=== PATIENT | female | born 1980 | race Caucasian/White ===

== ENCOUNTER → 2018-08-29 | Outpatient (REF) | payer OTHER | LOC: M LAB REF 19:13 | DX: N39.0 Urinary tract infection, site not specified (principal) ==

== ENCOUNTER → 2020-02-06 | Outpatient (REF) | payer OTHER, MEDICAID | LOC: M SFHCWAGY 18:46 | PROVIDERS: ATTEND Nurse Practitioner Women's Health | DX: Z12.4 Encounter for screening for malignant neoplasm of cervix (principal) ==

== ENCOUNTER → 2020-02-13 | Outpatient (CLI) | payer OTHER, MEDICAID ==
[2020-02-13 11:07] LABS: BLOOD UREA NITROGEN 15 MG/DL (7-18); CALCIUM LEVEL 8.8 MG/DL (8.5-10.1); CARBON DIOXIDE LEVEL 26 MEQ/L (21-32); CHLORIDE LEVEL 106 MEQ/L (98-107); CHOLESTEROL LEVEL 187 MG/DL (<200); CHOLESTEROL RISK RATIO 3.816 (<5); CREATININE FOR GFR 0.81 MG/DL (0.55-1.30); GLOMERULAR FILTRATION RATE > 60.0 (>58); GLUCOSE, FASTING 121 MG/DL (70-100); HDL CHOLESTEROL 49 MG/DL (>40); LDL CHOLESTEROL 103 MG/DL (<100); NON-HDL-C 138 MG/DL; POTASSIUM SERUM 4.6 MEQ/L (3.5-5.1); SODIUM LEVEL 138 MEQ/L (136-145); TRIGLYCERIDES LEVEL 173 MG/DL (<150)
== END ==
LOC: M PLALAB 08:51
PROVIDERS: ATTEND Physician Assistant Medical
DX: Z82.49 Family history of ischemic heart disease and other diseases of the circulatory system (principal)

== ENCOUNTER → 2021-02-18 | Outpatient (REF) | payer OTHER, MEDICAID | LOC: M SFHCWAGY 13:01 | PROVIDERS: ATTEND Nurse Practitioner Women's Health | DX: Z12.4 Encounter for screening for malignant neoplasm of cervix (principal) | CPT/HCPCS: 87624; G0123 ==

== ENCOUNTER → 2021-10-08 | Outpatient (REF) | payer OTHER, MEDICAID | LOC: M WUC 09:27 | PROVIDERS: ATTEND Nurse Practitioner Family | DX: J06.9 Acute upper respiratory infection, unspecified (principal) ==

== ENCOUNTER → 2022-04-16 | Outpatient (REF) | payer MEDICAID, OTHER | LOC: M SFHCDERM 19:10 | PROVIDERS: ATTEND Nurse Practitioner Family | DX: C44.41 Basal cell carcinoma of skin of scalp and neck (principal); L57.0 Actinic keratosis ==

== ENCOUNTER → 2022-05-28 | Outpatient (REF) | payer OTHER | LOC: M SFHCDERM 17:23 | PROVIDERS: ATTEND Nurse Practitioner Family | DX: C44.612 Basal cell carcinoma of skin of right upper limb, including shoulder (principal) ==

== ENCOUNTER → 2022-08-12 | Outpatient (REF) | payer OTHER ==
[2022-08-12 15:29] LABS: ALBUMIN 3.8 GM/DL (3.2-5.2); ALT/SGPT 17 U/L (12-78); BILIRUBIN,TOTAL 0.5 MG/DL (0.2-1.0); BLOOD UREA NITROGEN 12 MG/DL (7-18); CALCIUM LEVEL 8.9 MG/DL (8.5-10.1); CARBON DIOXIDE LEVEL 27 MEQ/L (21-32); CHLORIDE LEVEL 106 MEQ/L (98-107); CHOLESTEROL LEVEL 196 MG/DL (<200); CHOLESTEROL RISK RATIO 3.769 (<5); GLOMERULAR FILTRATION RATE > 60.0 (>58); GLUCOSE, FASTING 94 MG/DL (70-100); HDL CHOLESTEROL 52 MG/DL (>40); LDL CHOLESTEROL 109 MG/DL (<100); NON-HDL-C 144 MG/DL; POTASSIUM SERUM 4.2 MEQ/L (3.5-5.1); SODIUM LEVEL 137 MEQ/L (136-145); TOTAL PROTEIN 7.1 GM/DL (6.4-8.2); TRIGLYCERIDES LEVEL 175 MG/DL (<150)
== END ==
LOC: M LABDRWAD 12:41
PROVIDERS: ATTEND Nurse Practitioner Family
DX: I10 Essential (primary) hypertension (principal)

== ENCOUNTER → 2023-01-04 | Outpatient (CLI) | payer OTHER | LOC: M RAD 10:28 | PROVIDERS: ATTEND Nurse Practitioner Family | DX: R35.0 Frequency of micturition (principal); R30.0 Dysuria ==

== ENCOUNTER → 2023-02-08 | Outpatient (CLI) | payer OTHER | LOC: M WHC 14:45 | PROVIDERS: ATTEND Nurse Practitioner Family | DX: Z12.31 Encounter for screening mammogram for malignant neoplasm of breast (principal) ==

== ENCOUNTER → 2023-08-11 | Outpatient (REF) | payer OTHER ==
[2023-08-11 13:48] LABS: ALBUMIN 3.6 G/DL (3.2-5.2); ALKALINE PHOSPHATASE 33 U/L (46-116); ALT/SGPT 15 U/L (7.0-40); AST/SGOT 22 U/L (<34); BILIRUBIN,TOTAL 0.6 MG/DL (0.3-1.2); BLOOD UREA NITROGEN 14 MG/DL (9-23); CALCIUM LEVEL 8.6 MG/DL (8.5-10.1); CARBON DIOXIDE LEVEL 26 MMOL/L (20-31); CHLORIDE LEVEL 104 MMOL/L (98-107); CHOLESTEROL LEVEL 189 MG/DL (<200); CREATININE FOR GFR 0.74 MG/DL (0.55-1.30); GLOMERULAR FILTRATION RATE > 60.0 (>58); GLUCOSE, FASTING 88 MG/DL (60-100); POTASSIUM SERUM 4.1 MMOL/L (3.5-5.1); SODIUM LEVEL 137 MMOL/L (136-145); TOTAL PROTEIN 6.5 G/DL (5.7-8.2); TRIGLYCERIDES LEVEL 211 MG/DL (<150)
[2023-08-11 18:40] LABS: HDL CHOLESTEROL 43.9 MG/DL (>40); LDL CHOLESTEROL 102.9 MG/DL (<100); NON-HDL-C 145.1 MG/DL
== END ==
LOC: M LABDRWAD 12:55
PROVIDERS: ATTEND Nurse Practitioner Family
DX: I10 Essential (primary) hypertension (principal)

== ENCOUNTER → 2023-11-18 | Outpatient (CLI) | payer OTHER ==
[~2023-11-18] MED LIST: LARI1TAB PO; LEXA1TAB2 PO; LISI5TAB11 PO
== END ==
LOC: M SOG 13:30
PROVIDERS: ATTEND Physician Assistant
DX: M79.641 Pain in right hand (principal); M79.642 Pain in left hand

== ENCOUNTER 2023-11-23 09:37 | Day surgery (SDC) | payer OTHER ==
[~2023-11-23] VITALS: Ht 167.6 cm; Wt 75.6 kg
[~2023-11-23 09:37] MED LIST changes: +NS 1,000 ML IV ONE; +propofoL 200 MG/20 ML VIAL As Ordered ONE
[2023-11-23] MEDS ORDERED: propofoL 200 MG/20 ML VIAL As Ordered ONE ×2 (11:24→11:33)
[2023-11-23] MEDS ORDERED: LIDOCAINE 2% 100MG/5ML SDV (FOR ANES.) As Ordered ONE (11:24)
[2023-11-23 11:50] VITALS: TEMP 96.9
[2023-11-23 12:05] VITALS: BP 123/80; O2SAT 99
== END 2023-11-23 12:10 | disposition home or self-care (01) ==
LOC: M OPP 09:37
PROVIDERS: ATTEND Internal Medicine Gastroenterology
DX: Z12.11 Encounter for screening for malignant neoplasm of colon (principal); K57.30 Diverticulosis of large intestine without perforation or abscess without bleeding; K64.4 Residual hemorrhoidal skin tags; K64.8 Other hemorrhoids; Z79.899 Other long term (current) drug therapy

== ENCOUNTER → 2023-12-08 | Outpatient (REF) | payer OTHER ==
[~2023-12-08] MED LIST changes: -NS 1,000 ML IV ONE; -propofoL 200 MG/20 ML VIAL As Ordered ONE
== END ==
LOC: M LABDRWAD 12:50
PROVIDERS: ATTEND Nurse Practitioner Family
DX: R14.0 Abdominal distension (gaseous) (principal)

== ENCOUNTER → 2024-08-16 | Outpatient (REF) | payer OTHER ==
[2024-08-16 15:41] LABS: ALBUMIN 3.8 G/DL (3.2-5.2); ALKALINE PHOSPHATASE 34 U/L (46-116); ALT/SGPT 21 U/L (7.0-40); AST/SGOT 16 U/L (<34); BILIRUBIN,TOTAL 0.5 MG/DL (0.3-1.2); BLOOD UREA NITROGEN 14 MG/DL (9-23); CALCIUM LEVEL 9.5 MG/DL (8.5-10.1); CARBON DIOXIDE LEVEL 26 MMOL/L (20-31); CHLORIDE LEVEL 108 MMOL/L (98-107); CHOLESTEROL LEVEL 204 MG/DL (<200); CHOLESTEROL RISK RATIO 4.38 (<5); CREATININE FOR GFR 0.77 MG/DL (0.55-1.30); GLOMERULAR FILTRATION RATE > 60.0 (>58); GLUCOSE, FASTING 91 MG/DL (60-100); HDL CHOLESTEROL 46.5 MG/DL (>40); LDL CHOLESTEROL 123.7 MG/DL (<100); NON-HDL-C 157.5 MG/DL; POTASSIUM SERUM 4.3 MMOL/L (3.5-5.1); SODIUM LEVEL 139 MMOL/L (136-145); TRIGLYCERIDES LEVEL 169 MG/DL (<150)
== END ==
LOC: M LABDRWAD 13:14
PROVIDERS: ATTEND Nurse Practitioner Family
DX: Z00.00 Encounter for general adult medical examination without abnormal findings (principal)

== ENCOUNTER → 2024-09-11 | Outpatient (CLI) | payer OTHER | LOC: M SOG 07:56 | PROVIDERS: ATTEND Physician Assistant | DX: M25.521 Pain in right elbow (principal); M25.511 Pain in right shoulder ==

== ENCOUNTER → 2024-09-13 | Outpatient (REF) | payer OTHER | LOC: M LAB REF 17:20 | PROVIDERS: ATTEND Nurse Practitioner Family | DX: N39.0 Urinary tract infection, site not specified (principal) ==

== ENCOUNTER → 2025-01-12 | Outpatient (CLI) | payer OTHER | LOC: M WHC 14:37 | PROVIDERS: ATTEND Nurse Practitioner Family | DX: R92.2 Inconclusive mammogram (principal); R92.333 Mammographic heterogeneous density, bilateral breasts ==

== ENCOUNTER → 2025-01-30 | Outpatient (CLI) | payer OTHER | LOC: M WHC 10:24 | PROVIDERS: ATTEND Nurse Practitioner Family | DX: R92.8 Other abnormal and inconclusive findings on diagnostic imaging of breast (principal); N60.02 Solitary cyst of left breast | CPT/HCPCS: 76642; 77065; G0279 ==

== ENCOUNTER → 2025-08-16 | Outpatient (CLI) | payer OTHER | LOC: M WHC 09:31 | PROVIDERS: ATTEND Nurse Practitioner Family | DX: R92.8 Other abnormal and inconclusive findings on diagnostic imaging of breast (principal); R92.333 Mammographic heterogeneous density, bilateral breasts; N60.12 Diffuse cystic mastopathy of left breast | CPT/HCPCS: 76642; 77065; G0279 ==

== ENCOUNTER → 2025-08-17 | Outpatient (CLI) | payer OTHER ==
[2025-08-17 13:39] LABS: BASO # 0.1 10^3/uL (0.0-0.2); BASO % 1.2 % (0.0-1.0); EOS # 0.2 10^3/uL (0.0-0.5); EOS % 3.1 % (0.0-3.0); LYMPH # 1.5 10^3/uL (1.5-5.0); LYMPH % 25.0 % (24.0-44.0); MONO # 0.4 10^3/uL (0.0-0.8); MONO % 7.3 % (2.0-8.0); NEUTROPHILS # 3.7 10^3/uL (1.5-8.5); NEUTROPHILS % 63.1 % (36.0-66.0); PLATELET COUNT, AUTOMATED 214 10^3/uL (150-450)
[2025-08-17 13:43] LABS: ALT/SGPT 15.0 U/L (7.0-40); AST/SGOT 20.0 U/L (<34); CALCIUM LEVEL 8.9 MG/DL (8.5-10.1); CARBON DIOXIDE LEVEL 25.0 MMOL/L (20-31); CHLORIDE LEVEL 106.0 MMOL/L (98-107); CHOLESTEROL LEVEL 202.0 MG/DL (<200); CHOLESTEROL RISK RATIO 4.9 (<5); CREATININE FOR GFR 0.84 MG/DL (0.55-1.30); GLOMERULAR FILTRATION RATE 86.2 (>58); LDL CHOLESTEROL 133.0 MG/DL (<100); NON-HDL-C 160.8 MG/DL; POTASSIUM SERUM 4.4 MMOL/L (3.5-5.1); SODIUM LEVEL 140.0 MMOL/L (136-145); TRIGLYCERIDES LEVEL 139.0 MG/DL (<150)
== END ==
LOC: M LABDRWAD 08:25
PROVIDERS: ATTEND Nurse Practitioner Family
DX: I10 Essential (primary) hypertension (principal)